=== PATIENT | female | born 1950 ===

== ENCOUNTER 2018-08-23 15:54 | Emergency (ER) | payer OTHER ==
[~2018-08-23] VITALS: Ht 157.5 cm; Wt 68.0 kg
[2018-08-23] MEDS ORDERED: SYNTHROID175 MCG (16:13)
[2018-08-23] MEDS ORDERED: PROMETH-CODEIN 65 ML PO (22:03)
[2018-08-23] MEDS ORDERED: KETO10TA2 PO (22:03)
[2018-08-23] MEDS ORDERED: PHENERGAN25 MG PO (22:03)
[2018-08-23] MEDS ORDERED: MUCINEX DM ER1 EAC1 PO (22:03)
[2018-08-23] MEDS ORDERED: ZANTAC300 MG PO (22:03)
[2018-08-23] MEDS ORDERED: OSEL75CA PO (22:03)
== END 2018-08-23 22:22 | disposition home or self-care (01) ==
LOC: ER 15:54
DX: J09.X2 Influenza due to identified novel influenza A virus with other respiratory manifestations (principal); E86.0 Dehydration; K29.60 Other gastritis without bleeding

== ENCOUNTER → 2020-05-04 | Outpatient (CLI) | payer OTHER ==
[~2020-05-04] MED LIST: KETO10TA2 PO; MUCINEX DM ER1 EAC1 PO; OSEL75CA PO; PHENERGAN25 MG PO; PROMETH-CODEIN 65 ML PO; SYNTHROID175 MCG; ZANTAC300 MG PO
== END | disposition home or self-care (01) ==
LOC: OFIC 805 04-29 14:45
PROVIDERS: ATTEND Otolaryngology
DX: J38.2 Nodules of vocal cords (principal); K21.9 Gastro-esophageal reflux disease without esophagitis